=== PATIENT | female | born 1965 | race Caucasian/White ===

== ENCOUNTER → 2018-02-11 | Outpatient (CLI) | payer BC | END | disposition home or self-care (01) | LOC: LABWHC1 09:12 | PROVIDERS: ATTEND Obstetrics & Gynecology | DX: R61 Generalized hyperhidrosis (principal); R53.83 Other fatigue; N95.2 Postmenopausal atrophic vaginitis; R37 Sexual dysfunction, unspecified | CPT/HCPCS: 36415; 82670; 83001; 84403 ==

== ENCOUNTER → 2018-05-04 | Outpatient (CLI) | payer BC ==
--- NOTE | 2018-05-14 12:13 | MM ---
Reason for exam: screening (asymptomatic). Last mammogram was performed 1 year and 1 month ago. History: Patient is postmenopausal. Family history of breast cancer in sister at age 59. Reductions of both breasts, August 2017. Taking progesterone for 4 months. Physical Findings: A clinical breast exam by your physician is recommended on an annual basis and results should be correlated with mammographic findings. MG 3D Screening Mammo W/Cad Bilateral CC and MLO view(s) were taken. Prior study comparison: April 16, 2017, mammogram, performed at [facility]. March 21, 2016, mammogram, performed at [facility]. The breast tissue is heterogeneously dense. This may lower the sensitivity of mammography. New right central upper distortion at posterior depth. Left upper outer quadrant distortion at middle posterior depth. Findings may relate to interval reduction but necessitate further evaluation. Greater suspicion on the right breast than left. ASSESSMENT: Incomplete: need additional imaging evaluation, BI-RAD 0 RECOMMENDATION: Special view mammogram and ultrasound of both breasts. [facility] will attempt to contact patient to return for supplemental views and ultrasound.
== END | disposition home or self-care (01) ==
LOC: RADMAMWWP 14:28
PROVIDERS: ATTEND Family Medicine
DX: Z12.31 Encounter for screening mammogram for malignant neoplasm of breast (principal); Z80.3 Family history of malignant neoplasm of breast
CPT/HCPCS: 77063; 77067

== ENCOUNTER → 2018-05-15 | Outpatient (CLI) | payer BC ==
--- NOTE | 2018-05-18 10:25 | USB ---
Reason for exam: additional evaluation requested from abnormal screening. History: Patient is postmenopausal. Family history of breast cancer in sister at age 59. Reductions of both breasts, August 2017. Taking progesterone for 4 months. Physical Findings: Nurse did not find any significant physical abnormalities on exam. US Breast Workup Limited RENETTA Technologist: Rachell Owusu, RT (R)(M) Right limited breast ultrasound including focal area of concern, retroareolar and axilla demonstrates a 6 x 3 x 4mm irregular, solid, hypoechoic lesion at 10 o'clock, biopsy advised. Left limited breast ultrasound including focal area of concern, retroareolar and axilla demonstrates a 6 x 6 x 5mm oval, cystic lesion at 3 o'clock, simple cyst and a 8 x 6 x 7mm oval, solid lesion at 2 o'clock, consider biopsy. These results were verbally communicated with the patient and result sheet given to the patient on 05/15/18. ASSESSMENT: Suspicious, BI-RAD 4 RECOMMENDATION: Ultrasound core biopsy of the right breast. (possibly biopsy of left depending on imaging at time of biopsy) Called Dr. Abrams with mammographic findings and has scheduled an appointment for the patient for 05/28/18 at 8:[address] Tnog. Biopsy scheduled for 05/28/18 at 12:20. PRELIMINARY REPORT CALLED AND FAXED TO DR. TONG ON 05/18/18.
== END | disposition home or self-care (01) ==
LOC: RADMAMWWP 14:14
PROVIDERS: ATTEND Family Medicine
DX: R92.8 Other abnormal and inconclusive findings on diagnostic imaging of breast (principal)

== ENCOUNTER → 2018-05-28 | Day surgery (SDC) | payer BC ==
[2018-05-28 11:04] VITALS: RESP 12; TEMP 98.7
[2018-05-28 11:54] VITALS: BP 129/74; PULSE 72
--- NOTE | 2018-05-28 11:57 | USB ---
EXAMINATION TYPE: US biopsy breast VAD RT, US biopsy breast VAD LT, MG diagnostic mammo BI wo CAD DATE OF EXAM: 05/28/2018 CLINICAL HISTORY: R92.8 ABN MAMMO. Abnormal ultrasound. History of bilateral breast reduction roughly 6 months ago. TECHNIQUE: Ultrasound guided core biopsy of bilateral breast with clip placement. COMPARISON: Prior bilateral breast ultrasound May 15, 2018. FINDINGS: The procedure of ultrasound guided core biopsy was explained to the patient. Benefits, alternatives, and risks were discussed. An informed consent was then obtained. The patient was placed in supine positioning for imaging and for the procedure. Preprocedure ultrasound redemonstrates vague irregular hypoechoic shadowing area 10:00 position zone B right breast and a round slightly hyperechoic 6 mm area 2:00 position zone A left breast. The overlying skin was prepped and draped in usual sterile fashion bilaterally. Lidocaine buffered with bicarbonate was used as anesthetic into the skin and subcutaneous tissue . Lidocaine with epinephrine is used as anesthetic into the deeper tissue up to area of concern in the bilateral breasts. Under ultrasound guidance, a 12-gauge vacuum assisted biopsy gun device was used to obtain 2 core samples bilaterally. Following this, a biopsy clip was left in each lesion. Lesions were less well pronounced after sampling. The patient tolerated the procedure well without any immediate complication. The patient was kept in the radiology department for short stay after the procedure and then discharged home in stable condition. Postprocedure single view mammogram shows successful deployment of bilateral clips. Patient had persistent soreness bilateral breast and significant scar left breast from reduction surgery and thus single mammogram view was performed. IMPRESSION: Successful, uncomplicated ultrasound guided core biopsy of areas of concern in the bilateral breasts,, full pathology results to follow. Low index of suspicion noted at time of procedure for both lesions. Pathology Results: Benign A. RIGHT BREAST, TEN O'CLOCK, ULTRASOUND GUIDED CORE BIOPSY: Prominent hyalinizing stromal fibrosis and focal fat necrosis. Negative for malignancy. B. LEFT BREAST, TWO O'CLOCK, ULTRASOUND GUIDED CORE BIOPSY: Fat necrosis with inflammation and fibrosis. Negative for malignancy. Recommendation Follow up mammogram of both breasts in 6 months. OLU
== END ==
LOC: RADUSWWP 10:35
PROVIDERS: ATTEND Surgery
DX: N60.32 Fibrosclerosis of left breast (principal); N60.31 Fibrosclerosis of right breast; N64.1 Fat necrosis of breast
CPT/HCPCS: 88305; 77066; 19083; 19084; A4648; J2001

== ENCOUNTER → 2018-05-28 | Outpatient (CLI) | payer BC ==
[2018-05-28 08:11] VITALS: BP 149/88; PULSE 70; RESP 18; TEMP 98.3; BMI 25.0
--- NOTE | 2018-05-28 09:01 | P.GSHP ---
History of Present Illness H&P Date: 05/28/18 Chief Complaint: abnormal mammogram and ultrasound The patient is a 52-year-old white female who presents with a mammographic abnormality noted in bilateral breasts, which persisted on an ultrasound on the right breast. The area of concern is in the right central upper area and on ultrasound this area reveals a 6 x 4 mm irregular solid lesion at 10:00 for which biopsy was advised. In the left breast on ultrasound there was a 8 x 7 mm oval solid area at 2:00 for which biopsy was to be considered. This ultrasound will be repeated when the patient goes for her right breast biopsy. Of interest is the fact that the patient underwent a bilateral breast reduction in August 2017. The pathology on breast tissue at that time was all benign. The patient has done well since that time. Approximately 3 weeks ago she did have additional skin removed from both sides of the chest wall related to the breast reduction. The patient herself has not felt any masses or nodules of concern in her breasts. She has no history of any trauma to the breast. She has no history of any infection in the breast. The patient is not complaining of any pain in her breasts. Family history: 1. sister breast cancer at 58, she underwent a lumpectomy and radiation and is doing well at this time 2.mother: colon cancer 3. father: bladder cancer 4. paternal grandfather: bladder cancer Hormanal History: menarche: 11 : 2, first at 22, breast fed: no menopause: 48 BCP: 4 years hormones: biote with Dr. Delacruz, progesterone at night (pellet placed on May.04) Past Surgical History: 1. exploratory laproatomy 2. colon resection sigmoid colon resection removed tubes and one ovary 3. incisional hernia/abdominoplasty 4. bunionectomy 5. rotator cuff repaired Past Medical History: 1. HTN 2. back pain Social: smoke: not for 30 years alcohol: wine/week-ends drugs: none - Constitutional Comment: patient on biote pellets, using them for 4 months, prior to that hot flashes Constitutional: Denies chills, Denies fever - EENT Eyes: bilateral tunnel vision/blind spots (prior to migrains), denies blurred vision, denies pain Ears: deny: decreased hearing, tinnitus Ears, nose, mouth and throat: Reports headache, Denies sore throat - Breasts Breasts: bilateral: as per HPI - Cardiovascular Cardiovascular: Reports high blood pressure - Respiratory Comment: bronchitis in the past - Gastrointestinal Comment: PUD, sigmoid colon resection for diverticular disease - Genitourinary (Female) Genitourinary: Denies dysuria, Denies hematuria - Menstruation Menstruation: Reports postmenopausal - Musculoskeletal Comment: back pain - Integumentary Integumentary: Denies pruritus, Denies rash - Neurological Neurological: Denies numbness, Denies weakness - Psychiatric Psychiatric: Denies anxiety, Denies depression - Endocrine Endocrine: Denies fatigue, Denies weight change - Hematologic/Lymphatic Comment: aspirin baby q day - Allergic/Immunologic Allergic/Immunologic: Reports seasonal allergies Past Medical History Past Medical History: GERD/Reflux, Hypertension History of Any Multi-Drug Resistant Organisms: None Reported Past Surgical History: Bowel Resection, Hernia Repair, Orthopedic Surgery, Tubal Ligation Additional Past Surgical History / Comment(s): Right oophorectomy, Abdominalplasty after hernia repair, bilat breast reduction 2018 Past Anesthesia/Blood Transfusion Reactions: No Reported Reaction Past Psychological History: No Psychological Hx Reported Smoking Status: Never smoker Past Drug Use History: None Reported - Past Family History Mother Family Medical History: Cancer, Hypertension Additional Family Medical History / Comment(s): colon Father Family Medical History: Cancer, Diabetes Mellitus Additional Family Medical History / Comment(s): bladder Medications and Allergies Home Medications Medication Instructions Recorded Confirmed Type Aspirin [Adult Low Dose Aspirin EC] 81 mg PO DAILY 05/20/18 05/28/18 History Cholecalciferol [Vitamin D3] 5,000 unit PO DAILY 05/20/18 05/28/18 History Lisinopril-Hctz 10-12.5 mg 0.5 tab PO DAILY 05/20/18 05/28/18 History [Zestoretic 10-12.5] Loratadine [Claritin] 10 mg PO DAILY 05/20/18 05/28/18 History Omeprazole 40 mg PO DAILY PRN 05/20/18 05/28/18 History Progesterone, Micronized 200 mg PO DAILY 05/20/18 05/28/18 History [Progesterone] Allergies Allergy/AdvReac Type Severity Reaction Status Date / Time hydromorphone [From Dilaudid] Allergy Hallucinati Verified 05/20/18 12:55 ons Surgical - Exam Vital Signs Temp Pulse Resp BP Pulse Ox 98.3 F 70 18 149/88 98 05/28/18 08:02 05/28/18 08:02 05/28/18 08:02 05/28/18 08:02 05/28/18 08:02 BMI 25.1 - General well developed, well nourished, no distress - Eyes normal ocular movement, no icteric - ENT no hearing loss, no congestion - Neck no masses, trachea midline - Respiratory normal respiratory effort, clear to auscultation - Cardiovascular Rhythm: regular Heart Sounds: normal: S1, S2 - Abdomen Abdomen: soft, non tender, no guarding, no rigid, no rebound - Integumentary Patient has well-healed incisions from bilateral breast from reduction Inferior to the breast she had recent skin excision and there is a small area on the right and left lateral aspect of the lower incisions which are slightly open but no evidence of infection and these are healing well Well-healed scar from abdominoplasty - Neurologic no disoriented, no combative - Musculoskeletal normal gait, normal posture - Psychiatric oriented to time, oriented to person, oriented to place, speech is normal, memory intact Breast examination: Right breast: Well-healed scars from prior reduction mammoplasty, multi- positional examination of the breast reveals scar tissue related to reduction mammoplasty and some dense breast tissue but no discrete masses or nodules of concern are appreciated, inferior to the breast there is a well-healed scar with a small area open in the lateral aspect approximately 1 cm in size, this is from a recent skin excision there is no evidence of any infection Right axilla no adenopathy of concern Left breast: Well-healed scars from prior reduction mammoplasty, multi-positional examination of the breast reveals scar tissue related to reduction mammoplasty no dominant masses or nodules of concern Left axilla: No adenopathy of concern Inferior to the left breast there is an incision by recent skin excision was performed in the lateral aspect there is an area approximately 1.5 cm in size which is slightly open but no evidence of any infection Results Reports of mammogram and ultrasound of bilateral breast reviewed Assessment and Plan Assessment: Impression: 1. Bilateral mammographic abnormalities may be related to scar tissue from recent reduction mammoplasty 2. Ultrasound bilaterally revealing an area of concern in the right breast an area which will be reevaluated in the left breast biopsy of the right breast lesion is scheduled and repeat left breast ultrasound with possible biopsy of this site as well 3. History of back pain 4. Hypertension 5. Prior sigmoid colon resection for diverticular disease 6. Abdominoplasty 7. The patient had recent Biote pellet placement and takes progesterone in the evening, we have discussed that if this is a hormone sensitive tumor that we would prefer that she not take any hormones however she is concerned about her period starting with the biopsy pellet injection if she stops the progesterone she therefore wishes to await pathology results Plan: 1. Bilateral repeat ultrasound with right breast biopsy possible left breast biopsy 2. Patient to follow up in 1 week CC: DR. Ontiveros
== END ==
LOC: WWCWWP 07:41
PROVIDERS: ATTEND Surgery
DX: Z53.9 Procedure and treatment not carried out, unspecified reason (principal)

== ENCOUNTER → 2018-06-04 | Outpatient (CLI) | payer BC ==
[2018-06-04 12:50] VITALS: BP 126/66; PULSE 89; RESP 18; TEMP 97.7; BMI 25.8
--- NOTE | 2018-06-04 13:11 | P.PN ---
Subjective Progress Note Date: 06/04/18 Emmie is a 52-year-old white female who is status post bilateral ultrasound core biopsy performed [id number]. Pathology in the right breast revealed prominent hyalinizing stromal fibrosis and focal fat necrosis. Negative for malignancy. Pathology in the left breast revealed fat necrosis with inflammation and fibrosis. Negative for malignancy. The patient has no complaints related to the procedure. Objective - Vital Signs Vital signs: Vital Signs Temp 97.7 F 06/04/18 12:41 Pulse 89 06/04/18 12:41 Resp 18 06/04/18 12:41 BP 126/66 06/04/18 12:41 Pulse Ox 97 06/04/18 12:41 Intake & Output 06/03/18 06/04/18 06/04/18 18:59 06:59 18:59 Weight 68.353 kg - Constitutional General appearance: Present: average body habitus - EENT Eyes: Present: EOMI ENT: Present: hearing grossly normal - Neck Neck: Present: normal ROM - Respiratory Respiratory: bilateral: CTA - Cardiovascular Rhythm: regular Heart sounds: normal: S1, S2 - Gastrointestinal General gastrointestinal: Present: soft - Integumentary Integumentary: Present: normal turgor - Musculoskeletal Musculoskeletal: Present: gait normal - Psychiatric Psychiatric: Present: A&O x's 3, appropriate affect, intact judgment & insight - Additional findings Additional findings: Puncture sites from core biopsy clean and dry bilateral No evidence of infection at puncture sites Assessment and Plan Assessment: Impression: 1. Bilateral ultrasound-guided core biopsy of the breast benign 2. Bilateral breast reduction August 2017 3. Abdominoplasty 4. Prior sigmoid colon resection for diverticular disease 5. History of back pain Plan: 1. Medical management of medical conditions 2. Repeat bilateral breast ultrasound in 6 months with physician exam at that time CC: Dr. Ontiveros
== END ==
LOC: WWCWWP 12:30
PROVIDERS: ATTEND Surgery
DX: Z53.9 Procedure and treatment not carried out, unspecified reason (principal)

== ENCOUNTER → 2018-10-30 | Outpatient (CLI) | payer BC ==
--- NOTE | 2018-10-30 10:21 | MM ---
Reason for exam: follow-up at short interval from prior study. Last mammogram was performed 5 months ago. History: Patient is postmenopausal. Family history of breast cancer in sister at age 59. Benign US biopsy breast VAD LT of the left breast, May 28, 2018. Benign US biopsy breast add'l VAD RT of the right breast, May 28, 2018. Reductions of both breasts, August 2017. Taking progesterone for 4 months. Physical Findings: Nurse did not find any significant physical abnormalities on exam. MG 3D Diag Mammo W/Cad RENETTA Bilateral CC and MLO view(s) were taken. Prior study comparison: May 28, 2018, bilateral MG diagnostic marco antonio BI wo CAD. May 04, 2018, bilateral MG 3d screening mammo w/cad. The breast tissue is heterogeneously dense. This may lower the sensitivity of mammography. Previous mammotome biopsy in the right and left breast. There is no discrete abnormality. No significant new findings when compared with previous films. These results were verbally communicated with the patient and result sheet given to the patient on 10/30/18. ASSESSMENT: Benign, BI-RAD 2 RECOMMENDATION: Routine screening mammogram of both breasts in 1 year.
== END ==
LOC: RADMAMWWP 09:32
PROVIDERS: ATTEND Surgery
DX: R92.8 Other abnormal and inconclusive findings on diagnostic imaging of breast (principal)
CPT/HCPCS: 77062; 77066

== ENCOUNTER → 2019-12-07 | Outpatient (CLI) | payer BC ==
--- NOTE | 2019-12-09 08:32 | MM ---
Reason for exam: screening (asymptomatic). Last mammogram was performed 1 year and 1 month ago. History: Patient is postmenopausal. Family history of breast cancer in sister at age 59. Benign US biopsy breast VAD LT of the left breast, May 28, 2018. Benign US biopsy breast add'l VAD RT of the right breast, May 28, 2018. Reductions of both breasts, August 2017. Taking progesterone for 4 months. Physical Findings: A clinical breast exam by your physician is recommended on an annual basis and results should be correlated with mammographic findings. MG 3D Screening Mammo W/Cad Bilateral CC and MLO view(s) were taken. Prior study comparison: October 30, 2018, bilateral MG 3d diag mammo w/cad RENETTA. May 28, 2018, bilateral MG diagnostic marco antonio BI wo CAD. The breast tissue is heterogeneously dense. This may lower the sensitivity of mammography. Finding #1: There is a 7 mm equal density (isodense) mass in the subareolar position of the left breast. Finding #2: There are indeterminate calcifications in the subareolar position of the left breast. Previous mammotome biopsy in the right and left breast. ASSESSMENT: Incomplete: need additional imaging evaluation, BI-RAD 0 RECOMMENDATION: Special view mammogram of the left breast. If lesion persists on supplemental views, image directed ultrasound is recommended. [facility] will attempt to contact patient to return for supplemental views and ultrasound if indicated.
== END | disposition home or self-care (01) ==
LOC: RADMAMWWP 08:54
PROVIDERS: ATTEND Obstetrics & Gynecology
DX: Z80.3 Family history of malignant neoplasm of breast (principal)
CPT/HCPCS: 77063; 77067

== ENCOUNTER → 2019-12-13 | Outpatient (CLI) | payer BC ==
--- NOTE | 2019-12-14 10:18 | MM ---
Reason for exam: additional evaluation requested from abnormal screening. Last mammogram was performed less than 1 month ago. History: Patient is postmenopausal. Family history of breast cancer in sister at age 59. Benign US biopsy breast VAD LT of the left breast, May 28, 2018. Benign US biopsy breast add'l VAD RT of the right breast, May 28, 2018. Reductions of both breasts, August 2017. Taking progesterone for 4 months. Physical Findings: Nurse did not find any significant physical abnormalities on exam. MG 3D Work Up W/Cad LT CC with magnification, LM with magnification, and LM view(s) were taken of the left breast. Prior study comparison: December 07, 2019, bilateral MG 3d screening mammo w/cad. October 30, 2018, bilateral MG 3d diag mammo w/cad RENETTA. The breast tissue is heterogeneously dense. This may lower the sensitivity of mammography. Previous mammotome biopsy in the left breast. 12 o'clock lucencies at the site of subtle new grouped calcifications. On magnification CC there is a curvilinear edge, possible only oil cyst or fat necrosis calcifications. 6 month follow up recommended. These results were verbally communicated with the patient and result sheet given to the patient on 12/13/19. ASSESSMENT: Probably benign, BI-RAD 3 RECOMMENDATION: Follow-up diagnostic mammogram of the left breast in 6 months.
== END | disposition home or self-care (01) ==
LOC: RADMAMWWP 08:17
PROVIDERS: ATTEND Obstetrics & Gynecology
DX: R92.8 Other abnormal and inconclusive findings on diagnostic imaging of breast (principal)
CPT/HCPCS: 77061; 77065

== ENCOUNTER → 2020-05-11 | Outpatient (CLI) | payer BC | END | disposition home or self-care (01) | LOC: LABWHC1 11:36 | PROVIDERS: ATTEND Family Medicine | DX: Z20.828 Contact with and (suspected) exposure to other viral communicable diseases (principal) | CPT/HCPCS: U0003; C9803 ==

== ENCOUNTER → 2020-06-16 | Outpatient (CLI) | payer BC ==
--- NOTE | 2020-06-16 11:14 | MM ---
Reason for exam: follow-up at short interval from prior study. Last mammogram was performed 6 months ago. History: Patient is postmenopausal. Family history of breast cancer in sister at age 59. Benign US biopsy breast VAD LT of the left breast, May 28, 2018. Benign US biopsy breast add'l VAD RT of the right breast, May 28, 2018. Reductions of both breasts, August 2017. Taking progesterone for 2 years. Physical Findings: Nurse did not find any significant physical abnormalities on exam. MG 3D Diag Mammo W/Cad LT CC, MLO, and XCCL view(s) were taken of the left breast. Prior study comparison: December 13, 2019, left breast MG 3d work up w/cad LT. December 07, 2019, bilateral MG 3d screening mammo w/cad. The breast tissue is heterogeneously dense. This may lower the sensitivity of mammography. Previous mammotome biopsy in the left breast. No significant new findings when compared with previous films. These results were verbally communicated with the patient and result sheet given to the patient on 06/16/20. ASSESSMENT: Benign, BI-RAD 2 RECOMMENDATION: Return to routine screening mammogram schedule for both breasts.
== END | disposition home or self-care (01) ==
LOC: RADMAMWWP 09:58
PROVIDERS: ATTEND Obstetrics & Gynecology
DX: R92.8 Other abnormal and inconclusive findings on diagnostic imaging of breast (principal); Z80.3 Family history of malignant neoplasm of breast
CPT/HCPCS: 77061; 77065

== ENCOUNTER → 2020-12-08 | Outpatient (CLI) | payer BC ==
[2020-12-08 17:42] LABS: Chol/HDL Ratio 2.73; LDL Cholesterol,Calculated 88.2 mg/dL (0.0-131.0); VLDL Calculation 15.8 mg/dL (5.00-40.00)
== END | disposition home or self-care (01) ==
LOC: LABWHC1 07:23
PROVIDERS: ATTEND Internal Medicine Cardiovascular Disease
DX: E78.00 Pure hypercholesterolemia, unspecified (principal); Z82.49 Family history of ischemic heart disease and other diseases of the circulatory system
CPT/HCPCS: 36415; 80061; 82550; 83090; 83695; 84450; 84460

== ENCOUNTER → 2020-12-08 | Outpatient (CLI) | payer BC ==
--- NOTE | 2020-12-13 13:42 | MM ---
Reason for exam: screening (asymptomatic). Last mammogram was performed 6 months ago. History: Patient is postmenopausal. Family history of breast cancer in sister at age 59. Benign US biopsy breast VAD LT of the left breast, May 28, 2018. Benign US biopsy breast add'l VAD RT of the right breast, May 28, 2018. Reductions of both breasts, August 2017. Taking progesterone for 2 years. Physical Findings: A clinical breast exam by your physician is recommended on an annual basis and results should be correlated with mammographic findings. MG 3D Screening Mammo W/Cad Bilateral CC and MLO view(s) were taken. Prior study comparison: June 16, 2020, left breast MG 3d diag mammo w/cad LT. December 13, 2019, left breast MG 3d work up w/cad LT. The breast tissue is heterogeneously dense. This may lower the sensitivity of mammography. Previous mammotome biopsy in the right and left breast. There is no discrete abnormality. ASSESSMENT: Benign, BI-RAD 2 RECOMMENDATION: Routine screening mammogram of both breasts in 1 year.
== END | disposition home or self-care (01) ==
LOC: RADMAMWWP 07:20
PROVIDERS: ATTEND Obstetrics & Gynecology
DX: Z12.31 Encounter for screening mammogram for malignant neoplasm of breast (principal); Z78.0 Asymptomatic menopausal state; Z80.3 Family history of malignant neoplasm of breast
CPT/HCPCS: 77063; 77067

== ENCOUNTER → 2021-12-10 | Outpatient (CLI) | payer BC ==
--- NOTE | 2021-12-11 20:18 | MM ---
Reason for Exam: Screening (asymptomatic). Last screening mammogram was performed 12 month(s) ago. Patient History: Menarche at age 11. First Full-Term at age 22. Right ovary removed at age 47. Postmenopausal. Currently using Progesterone, beginning at age 48 for 8 years. 08/2017, Bilateral Reduction. 05/28/2018, Benign Core Biopsy on the left side. 05/28/2018, Benign Core Biopsy on the right side. Sister had breast cancer, age 59. Risk Values: Denice 5 year model risk: 3.7%. NCI Lifetime model risk: 20.9%. Prior Study Comparison: 12/13/2019 Left Diagnostic Mammogram, [facility]. 06/16/2020 Left Diagnostic Mammogram, [facility]. 12/08/2020 Bilateral Screening Mammogram, [facility]. Tissue Density: The breast tissue is heterogeneously dense. This may lower the sensitivity of mammography. Findings: Analyzed By CAD. There are reduction mammoplasty changes on both sides. A microclip on either side from prior biopsies. Areas of asymmetric density are unchanged. No significant change from prior exams. Overall Assessment: Benign, BI-RAD 2 Management: Screening Mammogram of both breasts in 1 year. 1. A clinical breast exam by your physician is recommended on an annual basis and results should be correlated with mammographic findings. 2. Patient should continue monthly self breast exams. 3. This exam should not preclude additional follow-up of suspicious palpable abnormalities. Electronically signed and approved by: Eliu Boss M.D. Radiologist
== END | disposition home or self-care (01) ==
LOC: RADMAMWWP 09:35
PROVIDERS: ATTEND Obstetrics & Gynecology
DX: Z12.31 Encounter for screening mammogram for malignant neoplasm of breast (principal); Z78.0 Asymptomatic menopausal state; Z80.3 Family history of malignant neoplasm of breast
CPT/HCPCS: 77063; 77067

== ENCOUNTER → 2022-12-13 | Outpatient (CLI) | payer BC ==
--- NOTE | 2022-12-16 07:41 | MM ---
Reason for Exam: Screening (asymptomatic). Last screening mammogram was performed 12 month(s) ago. Patient History: Menarche at age 11. First Full-Term at age 22. Right ovary removed at age 47. Postmenopausal. Currently using Progesterone, beginning at age 48 for 8 years. 08/2017, Bilateral Reduction. 05/28/2018, Benign Core Biopsy on the left side. 05/28/2018, Benign Core Biopsy on the right side. Sister had breast cancer, age 59. Risk Values: Denice 5 year model risk: 3.8%. NCI Lifetime model risk: 20.5%. Prior Study Comparison: 06/16/2020 Left Diagnostic Mammogram, [facility]. 12/08/2020 Bilateral Screening Mammogram, [facility]. 12/10/2021 Bilateral MG 3D screening mammo w/cad, [facility]. Tissue Density: The breast tissue is heterogeneously dense. This may lower the sensitivity of mammography. Findings: Analyzed By CAD. Right breast biopsy clip, left breast biopsy clip. Post biopsy changes. There is no suspicious group of microcalcifications or new suspicious mass in either breast. Overall Assessment: Benign, BI-RAD 2 Management: Screening Mammogram of both breasts in [address] [facility] will attempt to contact patient to return for supplemental views and ultrasound if indicated. Patient should continue monthly self-breast exams. A clinical breast exam by your physician is recommended on an annual basis. This exam should not preclude additional follow-up of suspicious palpable abnormalities. Note on Denice scores and lifetime risk: 1. A Denice score greater than 3% is considered moderate risk. If this is the case, consider specialist referral to assess eligibility for a risk reducing agent. 2. If overall lifetime risk for the development of breast cancer is 20% or higher, the patient may qualify for future screening with alternating mammogram and breast MRI. Electronically signed and approved by: Param Valero DO
== END | disposition home or self-care (01) ==
LOC: RADMAMWWP 08:14
PROVIDERS: ATTEND Obstetrics & Gynecology
DX: Z12.31 Encounter for screening mammogram for malignant neoplasm of breast (principal); Z78.0 Asymptomatic menopausal state; Z80.3 Family history of malignant neoplasm of breast
CPT/HCPCS: 77063; 77067

== ENCOUNTER → 2023-12-16 | Outpatient (CLI) | payer BC ==
--- NOTE | 2023-12-17 10:18 | MM ---
Reason for Exam: Screening (asymptomatic). Last screening mammogram was performed 12 month(s) ago. Patient History: Menarche at age 11. First Full-Term at age 22. Right ovary removed at age 47. Postmenopausal. Currently using Progesterone, beginning at age 48 for 8 years. 08/2017, Bilateral Reduction. 05/28/2018, Benign Core Biopsy on the left side. 05/28/2018, Benign Core Biopsy on the right side. Sister had breast cancer, age 59. Risk Values: Denice 5 year model risk: 4.0%. NCI Lifetime model risk: 20.1%. Prior Study Comparison: 12/08/2020 Bilateral Screening Mammogram, [facility]. 12/10/2021 Bilateral MG 3D screening mammo w/cad, [facility]. 12/13/2022 Bilateral MG 3D screening mammo w/cad, [facility]. Tissue Density: The breasts are heterogeneously dense, which may obscure small masses. Findings: Analyzed By CAD. There is no suspicious group of microcalcifications or new suspicious mass in either breast. Overall Assessment: Benign, BI-RAD 2 Management: Screening Mammogram of both breasts in 1 year. . Patient should continue monthly self-breast exams. A clinical breast exam by your physician is recommended on an annual basis. This exam should not preclude additional follow-up of suspicious palpable abnormalities. Note on Denice scores and lifetime risk: 1. A Denice score greater than 3% is considered moderate risk. If this is the case, consider specialist referral to assess eligibility for a risk reducing agent. 2. If overall lifetime risk for the development of breast cancer is 20% or higher, the patient may qualify for future screening with alternating mammogram and breast MRI. Electronically signed and approved by: Brian Levi M.D. Radiologis
== END | disposition home or self-care (01) ==
LOC: RADMAMWWP 08:59
PROVIDERS: ATTEND Obstetrics & Gynecology
DX: Z12.31 Encounter for screening mammogram for malignant neoplasm of breast (principal); Z80.3 Family history of malignant neoplasm of breast; Z78.0 Asymptomatic menopausal state
CPT/HCPCS: 77063; 77067

== ENCOUNTER 2024-09-04 08:39 | Observation (INO) | payer BC ==
--- NOTE | 2024-09-04 09:27 | ED ---
General Adult HPI - General Chief complaint: Dizziness Stated complaint: Dizziness,L arm pain Time Seen by Provider: 09/04/24 09:00 Source: patient, RN notes reviewed, old records reviewed Mode of arrival: wheelchair Limitations: no limitations - History of Present Illness Initial comments: Patient is a 58-year-old female who presents emergency department complaining of vertigo type symptoms. States that they started last night and progressed worsening this morning. Also states she had a strange feeling in her left arm that almost seems like a paresthesia. Denies any history of stroke, upper respiratory infection that is recent, cardiac disease. Cardiac disease does run in the family. Denies chest pain or shortness of breath. Denies nausea or vomiting or diarrhea. Denies abdominal pain. States that the dizziness is a room spinning sensation that furniture moves on her. States she has felt this previously 1 other time but it was not this persistent and not this bad. Does have family members with vertigo that take meclizine. She does not personally take it. States symptoms are worse when she sits up or stands up and improves when she lays down. Symptoms are worse with certain movements of her head as well. Presents for further evaluation at this time. Denies falling but states that when she does stand up she feels like she is going to fall due to the vertiginous symptoms. - Related Data Home Medications Medication Instructions Recorded Confirmed Aspirin [Adult Low Dose Aspirin EC] 81 mg PO DAILY 05/20/18 06/04/18 Cholecalciferol [Vitamin D3] 5,000 unit PO DAILY 05/20/18 06/04/18 Lisinopril-Hctz 10-12.5 mg 0.5 tab PO DAILY 05/20/18 06/04/18 [Zestoretic 10-12.5] Loratadine [Claritin] 10 mg PO DAILY 05/20/18 06/04/18 Omeprazole 40 mg PO DAILY PRN 05/20/18 06/04/18 Progesterone, Micronized 200 mg PO DAILY 05/20/18 06/04/18 [Progesterone] Allergies Allergy/AdvReac Type Severity Reaction Status Date / Time hydromorphone [From Dilaudid] Allergy Hallucinati Verified 09/04/24 08:43 ons Review of Systems ROS Statement: Those systems with pertinent positive or pertinent negative responses have been documented in the HPI. Review of Systems: CONST: Denies fever EYES: Denies blurry vision ENT: Denies nasal congestion C/V: Denies Chest pain RESP: Denies shortness of breath GI: Denies abdominal pain : Denies dysuria SKIN: Denies rash. MSK: Denies joint pain. NEURO: Endorses dizziness ROS Other: All systems not noted in ROS Statement are negative. Past Medical History Past Medical History: GERD/Reflux, Hypertension History of Any Multi-Drug Resistant Organisms: None Reported Past Surgical History: Bowel Resection, Hernia Repair, Orthopedic Surgery, Tubal Ligation Additional Past Surgical History / Comment(s): Right oophorectomy, Abdominalplasty after hernia repair, bilat breast reduction 2018 Past Anesthesia/Blood Transfusion Reactions: No Reported Reaction Past Psychological History: No Psychological Hx Reported Smoking Status: Never smoker Past Alcohol Use History: Daily Past Drug Use History: None Reported - Past Family History Mother Family Medical History: Cancer, Hypertension Additional Family Medical History / Comment(s): colon Father Family Medical History: Cancer, Diabetes Mellitus Additional Family Medical History / Comment(s): bladder General Exam - General Exam Comments Initial Comments: General: Appears in mild distress secondary to vertigo symptoms. HEAD: Normal with no signs of head trauma. EYES: PERRLA, EOMI, conjunctiva normal, no discharge. Pupils are 2 to 3 mm and equal bilaterally. No obvious nystagmus appreciated. ENT: Hearing grossly intact, normal oropharynx. RESPIRATORY: Clear breath sounds bilaterally. No wheezes, rales, or rhonchi. C/V: Regular rate and rhythm. S1 and S2 auscultated, no edema, peripheral pulses 2+ and intact throughout ABD: Abd is soft, nontender, nondistended EXT: Normal range of motion, no obvious deformity SKIN: No rashes or lesions observed on exposed skin. NEURO: Alert and oriented x 4. Cranial nerves II through XII are intact. Cerebellar function appears to be intact as evident by normal finger-nose testing, normal [id number] testing. There is absence of dysdiadochokinesia. Did not attempt ambulation due to the vertigo symptoms at time of exam. NIH is 0. GCS of 15. Limitations: no limitations Course Vital Signs 09/04/24 08:40 Temperature 98.1 F Pulse Rate 73 Respiratory 18 Rate Blood Pressure 182/82 O2 Sat by Pulse 99 Oximetry Medical Decision Making - Medical Decision Making Was pt. sent in by a medical professional or institution ([facility], [facility], urgent care, hospital, or prison...) When possible be specific @ -No Did you speak to anyone other than the patient for history (EMS, parent, family, police, friend...)? What history was obtained from this source @ -No Did you review nursing and triage notes (agree or disagree)? Why? @ -I reviewed and agree with nursing and triage notes Were old charts reviewed (outside hosp., previous admission, EMS record, old EKG, old radiological studies, urgent care reports/EKG's, prison records)? Report findings @ -No old charts were reviewed Differential Diagnosis (chest pain, altered mental status, abdominal pain women, abdominal pain men, vaginal bleeding, weakness, fever, dyspnea, syncope, headache, dizziness, GI bleed, back pain, seizure, CVA, palpatations, mental health, musculoskeletal)? @ -Differential Dizziness: Benign paroxysmal positional Vertigo, Meniere's disease, otitis media, acoustic neuroma, vertebrobasilar insufficiency, cerebellar stroke, encephalitis, hypovolemic, arrhythmia, coronary artery syndrome, anemia, this is not meant to be an all-inclusive list EKG interpreted by me (3pts min.). @ -As above X-rays interpreted by me (1pt min.). @ -Chest x-ray shows no obvious acute cardiopulmonary process. CT interpreted by me (1pt min.). @ -CT brain and CT angiogram head and neck negative for any obvious acute process. No evidence of stroke or large vessel occlusion. U/S interpreted by me (1pt. min.). @ -None done What testing was considered but not performed or refused? (CT, X-rays, U/S, labs)? Why? @ -None What meds were considered but not given or refused? Why? @ -None Did you discuss the management of the patient with other professionals (professionals i.e. [facility], [facility], lab, RT, psych nurse, social media campaign manager, dry wall installer, teacher, founder chairman and chief creative officer, sample case porter)? Give summary @ -I spoke with Dr. Head, who admits for Dr. Abrams who accepted the patient. Was smoking cessation discussed for >3mins.? @ -No Was critical care preformed (if so, how long)? @ -No Were there social determinants of health that impacted care today? How? (Homelessness, low income, unemployed, alcoholism, drug addiction, transportation, low edu. Level, literacy, decrease access to med. care, mcc, rehab)? @ -No Was there de-escalation of care discussed even if they declined (Discuss DNR or withdrawal of care, Hospice)? DNR status @ -No What co-morbidities impacted this encounter? (DM, HTN, Smoking, COPD, CAD, Cancer, CVA, ARF, Chemo, Hep., AIDS, mental health diagnosis, sleep apnea, morbi d obesity)? @ -None Was patient admitted / discharged? Hospital course, mention meds given and rout e, prescriptions, significant lab abnormalities, going to OR and other pertinent info. @ -Patient is a 58-year-old female who essentially presents for new onset vertigo. No other obvious findings on exam. NIH is 0. Last known well was sometime last night. Vital signs currently remarkable for mild hypertension. Has no other acute complaints at this time. We will obtain vertical workup including CT imaging the brain. She will be administered IV fluids, Zofran, meclizine. Patient was in agreement this plan. Patient is concerned for possible cardiac etiology for symptoms concerning her left arm feelings this morning which are improved, and she does have a history in the family of cardiac disease. Will obtain cardiac workup as well. EKG shows no signs of acute ischemia.Imaging negative for any obvious acute process. Laboratory studies are all within acceptable limits. I discussed the workup with the patient. She expressed understanding. Patient is still having significant vertigo following multiple doses of meclizine here in the department as well as IV fluids. I discussed discharge versus admission and she was amenable to admission for neurology evaluation. We will continue with meclizine therapy, IV fluids. I spoke with Dr. Head, who admits for Dr. Abrams who accepted the patient. Consult placed to neurology. Undiagnosed new problem with uncertain prognosis? @ -No Drug Therapy requiring intensive monitoring for toxicity (Heparin, Nitro, Insulin, Cardizem)? @ -No Were any procedures done? @ -No Diagnosis/symptom? @ -Intractable vertigo Acute, or Chronic, or Acute on Chronic? @ -Acute Uncomplicated (without systemic symptoms) or Complicated (systemic symptoms)? @ -Complicated Side effects of treatment? @ -None Exacerbation, Progression, or Severe Exacerbation] @ -No Poses a threat to life or bodily function? @ -Potentially, yes - Lab Data Result diagrams: 09/04/24 09:07 09/04/24 09:07 Lab Results 09/04/24 09/04/24 09/04/24 Range/Units 09:07 09:07 09:08 WBC 6.2 (3.8-10.6) k/uL RBC 4.39 (3.80-5.40) m/uL Hgb 13.4 (11.4-16.0) gm/dL Hct 41.0 (34.0-46.0) % MCV 93.4 (80.0-100.0) fL MCH 30.6 (25.0-35.0) pg MCHC 32.7 (31.0-37.0) g/dL RDW 13.5 (11.5-15.5) % Plt Count 296 (150-450) k/uL MPV 7.7 Neutrophils % 66 % Lymphocytes % 24 % Monocytes % 5 % Eosinophils % 3 % Basophils % 0 % Neutrophils # 4.1 (1.3-7.7) k/uL Lymphocytes # 1.5 (1.0-4.8) k/uL Monocytes # 0.3 (0-1.0) k/uL Eosinophils # 0.2 (0-0.7) k/uL Basophils # 0.0 (0-0.2) k/uL PT (10.0-12.5) sec INR (<1.2) APTT (22.0-30.0) sec Sodium 138 (137-145) mmol/L Potassium 4.3 (3.5-5.1) mmol/L Chloride 103 (98-107) mmol/L Carbon Dioxide 27 (22-30) mmol/L Anion Gap 8 mmol/L BUN 16 (7-17) mg/dL Creatinine 0.62 (0.52-1.04) mg/dL Est GFR (CKD-EPI)AfAm >90 (>60 ml/min/1.73 sqM) Est GFR (CKD-EPI)NonAf >90 (>60 ml/min/1.73 sqM) Glucose 111 H (74-99) mg/dL Calcium 9.8 (8.4-10.2) mg/dL Magnesium 2.4 H (1.6-2.3) mg/dL Total Bilirubin 0.9 (0.2-1.3) mg/dL AST 24 (14-36) U/L ALT 25 (4-34) U/L Alkaline Phosphatase 43 (38-126) U/L Troponin I (0.000-0.034) ng/mL Total Protein 7.1 (6.3-8.2) g/dL Albumin 4.5 (3.5-5.0) g/dL Urine Color Colorless Urine Appearance Clear (Clear) Urine pH 5.5 (5.0-8.0) Ur Specific [place] 1.004 (1.001-1.035) Urine Protein Negative (Negative) Urine Glucose (UA) Negative (Negative) Urine Ketones Negative (Negative) Urine Blood Negative (Negative) Urine Nitrite Negative (Negative) Urine Bilirubin Negative (Negative) Urine Urobilinogen <2.0 (<2.0) mg/dL Ur Leukocyte Esterase Negative (Negative) Urine Opiates Screen (NotDetected) Ur Oxycodone Screen (NotDetected) Urine Methadone Screen (NotDetected) Ur Barbiturates Screen (NotDetected) U Tricyclic Antidepress (NotDetected) Ur Phencyclidine Scrn (NotDetected) Ur Amphetamines Screen (NotDetected) U Methamphetamines Scrn (NotDetected) U Benzodiazepines Scrn (NotDetected) Urine Cocaine Screen (NotDetected) U Marijuana (THC) Screen (NotDetected) Serum Alcohol <10 mg/dL Influenza Type A (PCR) (Not Detectd) Influenza Type B (PCR) (Not Detectd) RSV (PCR) (Not Detectd) SARS-CoV-2 (PCR) (Not Detectd) 09/04/24 09/04/24 09/04/24 Range/Units 09:08 09:08 09:09 WBC (3.8-10.6) k/uL RBC (3.80-5.40) m/uL Hgb (11.4-16.0) gm/dL Hct (34.0-46.0) % MCV (80.0-100.0) fL MCH (25.0-35.0) pg MCHC (31.0-37.0) g/dL RDW (11.5-15.5) % Plt Count (150-450) k/uL MPV Neutrophils % % Lymphocytes % % Monocytes % % Eosinophils % % Basophils % % Neutrophils # (1.3-7.7) k/uL Lymphocytes # (1.0-4.8) k/uL Monocytes # (0-1.0) k/uL Eosinophils # (0-0.7) k/uL Basophils # (0-0.2) k/uL PT 10.5 (10.0-12.5) sec INR 0.9 (<1.2) APTT 25.1 (22.0-30.0) sec Sodium (137-145) mmol/L Potassium (3.5-5.1) mmol/L Chloride (98-107) mmol/L Carbon Dioxide (22-30) mmol/L Anion Gap mmol/L BUN (7-17) mg/dL Creatinine (0.52-1.04) mg/dL Est GFR (CKD-EPI)AfAm (>60 ml/min/1.73 sqM) Est GFR (CKD-EPI)NonAf (>60 ml/min/1.73 sqM) Glucose (74-99) mg/dL Calcium (8.4-10.2) mg/dL Magnesium (1.6-2.3) mg/dL Total Bilirubin (0.2-1.3) mg/dL AST (14-36) U/L ALT (4-34) U/L Alkaline Phosphatase (38-126) U/L Troponin I <0.012 (0.000-0.034) ng/mL Total Protein (6.3-8.2) g/dL Albumin (3.5-5.0) g/dL Urine Color Urine Appearance (Clear) Urine pH (5.0-8.0) Ur Specific [place] (1.001-1.035) Urine Protein (Negative) Urine Glucose (UA) (Negative) Urine Ketones (Negative) Urine Blood (Negative) Urine Nitrite (Negative) Urine Bilirubin (Negative) Urine Urobilinogen (<2.0) mg/dL Ur Leukocyte Esterase (Negative) Urine Opiates Screen (NotDetected) Ur Oxycodone Screen (NotDetected) Urine Methadone Screen (NotDetected) Ur Barbiturates Screen (NotDetected) U Tricyclic Antidepress (NotDetected) Ur Phencyclidine Scrn (NotDetected) Ur Amphetamines Screen (NotDetected) U Methamphetamines Scrn (NotDetected) U Benzodiazepines Scrn (NotDetected) Urine Cocaine Screen (NotDetected) U Marijuana (THC) Screen (NotDetected) Serum Alcohol mg/dL Influenza Type A (PCR) Not Detected (Not Detectd) Influenza Type B (PCR) Not Detected (Not Detectd) RSV (PCR) Not Detected (Not Detectd) SARS-CoV-2 (PCR) Not Detected (Not Detectd) 09/04/24 Range/Units 09:25 WBC (3.8-10.6) k/uL RBC (3.80-5.40) m/uL Hgb (11.4-16.0) gm/dL Hct (34.0-46.0) % MCV (80.0-100.0) fL MCH (25.0-35.0) pg MCHC (31.0-37.0) g/dL RDW (11.5-15.5) % Plt Count (150-450) k/uL MPV Neutrophils % % Lymphocytes % % Monocytes % % Eosinophils % % Basophils % % Neutrophils # (1.3-7.7) k/uL Lymphocytes # (1.0-4.8) k/uL Monocytes # (0-1.0) k/uL Eosinophils # (0-0.7) k/uL Basophils # (0-0.2) k/uL PT (10.0-12.5) sec INR (<1.2) APTT (22.0-30.0) sec Sodium (137-145) mmol/L Potassium (3.5-5.1) mmol/L Chloride (98-107) mmol/L Carbon Dioxide (22-30) mmol/L Anion Gap mmol/L BUN (7-17) mg/dL Creatinine (0.52-1.04) mg/dL Est GFR (CKD-EPI)AfAm (>60 ml/min/1.73 sqM) Est GFR (CKD-EPI)NonAf (>60 ml/min/1.73 sqM) Glucose (74-99) mg/dL Calcium (8.4-10.2) mg/dL Magnesium (1.6-2.3) mg/dL Total Bilirubin (0.2-1.3) mg/dL AST (14-36) U/L ALT (4-34) U/L Alkaline Phosphatase (38-126) U/L Troponin I (0.000-0.034) ng/mL Total Protein (6.3-8.2) g/dL Albumin (3.5-5.0) g/dL Urine Color Urine Appearance (Clear) Urine pH (5.0-8.0) Ur Specific [place] (1.001-1.035) Urine Protein (Negative) Urine Glucose (UA) (Negative) Urine Ketones (Negative) Urine Blood (Negative) Urine Nitrite (Negative) Urine Bilirubin (Negative) Urine Urobilinogen (<2.0) mg/dL Ur Leukocyte Esterase (Negative) Urine Opiates Screen Not Detected (NotDetected) Ur Oxycodone Screen Not Detected (NotDetected) Urine Methadone Screen Not Detected (NotDetected) Ur Barbiturates Screen Not Detected (NotDetected) U Tricyclic Antidepress Not Detected (NotDetected) Ur Phencyclidine Scrn Not Detected (NotDetected) Ur Amphetamines Screen Not Detected (NotDetected) U Methamphetamines Scrn Not Detected (NotDetected) U Benzodiazepines Scrn Not Detected (NotDetected) Urine Cocaine Screen Not Detected (NotDetected) U Marijuana (THC) Screen Not Detected (NotDetected) Serum Alcohol mg/dL Influenza Type A (PCR) (Not Detectd) Influenza Type B (PCR) (Not Detectd) RSV (PCR) (Not Detectd) SARS-CoV-2 (PCR) (Not Detectd) - EKG Data -: EKG Interpreted by Me EKG Comments: 12-lead Electrocardiogram Interpretation Note EKG was reviewed and interpreted by myself. 12-lead ECG performed at 0916 is interpreted by me as revealing sinus bradycardia at a rate of 59 beats per minute. [place] is normal. UT interval is 163 ms, QRS duration is 87 ms, QTc is 3 to 95 ms.. There were no ST or T wave abnormalities to suggest myocardial ischemia or injury. R wave progression across the precordium was satisfactory. By my interpretation this EKG is non-diagnostic for acute ischemia. Disposition Clinical Impression: Vertigo Disposition: ADMITTED IP TO THIS HOSP Condition: Stable Referrals: Jen Abrams MD [Primary Care Provider] - 1-2 days Time of Disposition: 11:25
[2024-09-04 09:58] LABS: Basophils % (A) 0 %; Eosinophils # (A) 0.2 k/uL (0-0.7); Eosinophils % (A) 3 %; HGB 13.4 gm/dL (11.4-16.0); Lymphocytes # (A) 1.5 k/uL (1.0-4.8); Lymphocytes % (A) 24 %; MCH 30.6 pg (25.0-35.0); MCHC 32.7 g/dL (31.0-37.0); MCV 93.4 fL (80.0-100.0); Mean Platelet Volume 7.7; Monocytes # (A) 0.3 k/uL (0-1.0); Monocytes % (A) 5 %; Neutrophils # (A) 4.1 k/uL (1.3-7.7); Neutrophils % (A) 66 %; Platelet Count 296 k/uL (150-450); RBC 4.39 m/uL (3.80-5.40); RDW 13.5 % (11.5-15.5); WBC 6.2 k/uL (3.8-10.6)
[2024-09-04 10:00] LABS: Appearance,Urine Clear (Clear); Bilirubin,Urine Negative (Negative); Blood,Urine Negative (Negative); Color,Urine Colorless; Glucose,Urine (UA) Negative (Negative); Ketones,Urine Negative (Negative); Leukocyte Esterase,Urine Negative (Negative); Nitrite,Urine Negative (Negative); PH, Urine 5.5 (5.0-8.0); Protein,Urine Negative (Negative); Specific Gravity,Urine 1.004 (1.001-1.035); Urobilinogen,Urine <2.0 mg/dL (<2.0)
[2024-09-04] MEDS: SODIUM CHLORIDE 0.9% 1,000 ML IV STA ×2 (10:02→11:47)
[2024-09-04] MEDS: ONDANSETRON 4 MG/2 ML VIAL IVP STA (10:02)
[2024-09-04] MEDS: MECLIZINE 12.5 MG TAB PO STA ×2 (10:02→11:47)
--- NOTE | 2024-09-04 10:04 | XR ---
Two-view chest. CLINICAL INDICATION: Female, 58 years old with history of dizzy, arm pain, Cough. COMPARISON: None TECHNIQUE: PA and lateral views chest obtained FINDINGS: There is no abnormal consolidative or interstitial opacity and the lungs are clear. The heart and pulmonary vasculature are normal. There is no pleural effusion or pneumothorax. The osseous structures and soft tissues unremarkable. IMPRESSION: No acute cardiopulmonary disease. [facility], , 09/04/2024 10:01 AM
[2024-09-04 10:13] LABS: ALT 25 U/L (4-34); AST 24 U/L (14-36); African American GFR (CKD) >90 (>60 ml/min/1.73 sqM); Albumin 4.5 g/dL (3.5-5.0); Alcohol <10 mg/dL; Alkaline Phosphatase 43 U/L (38-126); Anion Gap 8 mmol/L; Blood Urea Nitrogen 16 mg/dL (7-17); Calcium 9.8 mg/dL (8.4-10.2); Carbon Dioxide 27 mmol/L (22-30); Chloride 103 mmol/L (98-107); Glucose 111 mg/dL (74-99); Magnesium 2.4 mg/dL (1.6-2.3); Non-African American GFR(CKD) >90 (>60 ml/min/1.73 sqM); Potassium 4.3 mmol/L (3.5-5.1); Sodium 138 mmol/L (137-145); Total Bilirubin 0.9 mg/dL (0.2-1.3); Total Protein 7.1 g/dL (6.3-8.2)
[2024-09-04 10:14] LABS: Amphetamine Screen,Urine Not Detected (NotDetected); Barbiturate Screen,Urine Not Detected (NotDetected); Benzodiazepines Screen,Urine Not Detected (NotDetected); Cocaine Screen,Urine Not Detected (NotDetected); Methadone Screen, Urine Not Detected (NotDetected); Opiate Screen,Urine Not Detected (NotDetected); Oxycodone Screen, Urine Not Detected (NotDetected); Phencyclidine Screen,Urine Not Detected (NotDetected); Tricyclic Antidepressant,Urine Not Detected (NotDetected); Urn Cannabinoid Scrn Not Detected (NotDetected)
[2024-09-04 10:21] LABS: INR 0.9 (<1.2); Partial Thromboplastin Time 25.1 sec (22.0-30.0); Prothrombin Time 10.5 sec (10.0-12.5)
[2024-09-04 10:37] LABS: Influenza A Not Detected (Not Detectd); Influenza B Not Detected (Not Detectd); RSV Not Detected (Not Detectd)
--- NOTE | 2024-09-04 10:51 | CT ---
EXAMINATION TYPE: CT brain wo con DATE OF EXAM: 09/04/2024 COMPARISON: None CLINICAL INDICATION: Female, 58 years old with history of vertigo; PHH, vERTIGO CT DLP: 1094.9 mGycm Automated exposure control for dose reduction was used. Findings: The ventricles, basal cisterns and sulci over the convexities are within normal limits and there is n o mass effect or shift of midline structures. No abnormal density is seen throughout the brain parenchyma and there is no acute intra or extra-axia l hemorrhage. The posterior fossa including the brainstem, fourth ventricle and cerebellar pontine angles appear no rmal. Intraorbital contents appear normal and symmetric. Mild chronic inflammatory change in the left maxillary sinus otherwise the paranasal sinuses and mast oid air cells are well aerated. The calvarium is intact. IMPRESSION: 1. No acute bleed or mass effect. 2. Mild chronic inflammatory changes left maxillary sinus. [facility], , 09/04/2024 10:48 AM
--- NOTE | 2024-09-04 11:18 | CT ---
EXAMINATION TYPE: CT angio head neck DATE OF EXAM: 09/04/2024 COMPARISON: None CLINICAL INDICATION: Female, 58 years old with history of vertigo; PHH, VERTIGO TECHNIQUE: CTA scan of the head and neck is performed without and with IV Contrast, patient injected with 65 ml mL of Isovue 370, axial images are obtained, coronal and sagittal reformatted images are reviewed. 3D reconstructed images are created on an independent workstation and reviewed. 3-D postpro cessing was performed. CT DLP: 412.[address] CTDI: mGy Automated exposure control for dose reduction was used. NASCET criteria was used in interpretation of this exam? FINDINGS: The brachiocephalic origins are widely patent and no significant stenosis. There is no significant stenosis of the common or internal carotid arteries within the neck. There is no stenosis of the vertebral arteries. Intracranially, there is no stenosis, segmental occlusion, sizable aneurysm sac or vascular malformat ion. IMPRESSION:. No significant abnormality seen. NASCET criteria was used in interpretation of this exam? [facility], Workstation: [email or web address] 09/04/2024 11:16 AM
[2024-09-04] MEDS ORDERED: ONDANSETRON 4 MG/2 ML VIAL IVP PRN (11:25)
[2024-09-04] MEDS ORDERED: NALOXONE 0.4 MG/ML 1 ML VIAL IV PRN (11:25)
--- NOTE | 2024-09-04 13:22 | P.HPIM ---
History of Present Illness H&P Date: 09/04/24 Emmie Beyer, is a 58-year-old female who presented to [facility] emergency room with a chief complaint of severe vertigo, patient states that for the last 24 hours she has been having severe dizziness with feeling the room spinning around, and having unstable gait, she stated that she had a similar episode 2 months ago, at that time she had started a new estrogen replacement therapy, and thought that her symptoms were related to that, she discontinued estrogen and her symptoms resolved. At this time, patient stated that her symptoms are more severe, she was also having some nausea, she felt at some point that her left arm was heavy, but at this time this has resolved, the only symptoms she is having at this time is vertigo. She was evaluated in the emergency room vital examination on presentation revealed a temperature of 98.1 pulse 73 respiration 18 blood pressure 182/82 pulse ox 99% on room air Laboratory data revealed a white blood count of 6.2 hemoglobin 13.4 platelet count 296 BUN 16 creatinine 0.62 magnesium was elevated at 2.4 troponin 0.012 urine analysis was clear, urine toxicology screen was negative, influenza A and B, COVID-19, and RSV PCR were all negative. Testing in the emergency room revealed chest x-ray done in the emergency room revealed no acute cardiopulmonary disease, EKG revealed sinus bradycardia otherwise normal EKG, CT scan of the brain revealed no acute bleed or mass effect, mild chronic inflammatory changes in the left maxillary sinus. CT angiogram of the head and neck revealed no significant abnormality Patient was admitted to medical floor for further evaluation and treatment, neurology consultation was requested. Past medical history is significant for history of hypertension, history of hyperlipidemia, otherwise she denies any significant past medical history, she states that she had an echocardiogram and a carotid Doppler about 2 years ago and they were within normal limits Past Medical History Past Medical History: GERD/Reflux, Hypertension History of Any Multi-Drug Resistant Organisms: None Reported Past Surgical History: Bowel Resection, Hernia Repair, Orthopedic Surgery, Tubal Ligation Additional Past Surgical History / Comment(s): Right oophorectomy, Abdominalplasty after hernia repair, bilat breast reduction 2017 Past Anesthesia/Blood Transfusion Reactions: No Reported Reaction Past Psychological History: No Psychological Hx Reported Smoking Status: Never smoker Past Alcohol Use History: Daily Past Drug Use History: None Reported - Past Family History Mother Family Medical History: Cancer, Hypertension Additional Family Medical History / Comment(s): colon Father Family Medical History: Cancer, Diabetes Mellitus Additional Family Medical History / Comment(s): bladder Medications and Allergies Home Medications Medication Instructions Recorded Confirmed Type Aspirin [Adult Low Dose Aspirin EC] 81 mg PO HS 05/20/18 09/04/24 History Lisinopril-Hctz 10-12.5 mg 0.5 tab PO DAILY 05/20/18 09/04/24 History [Zestoretic 10-12.5] Progesterone, Micronized 200 mg PO HS 05/20/18 09/04/24 History [Progesterone] Aspirin 81 mg PO ONCE PRN 09/04/24 09/04/24 History Atorvastatin [Lipitor] 10 mg PO HS 09/04/24 09/04/24 History Co Q-10(Unknown Dose) 1 tab PO HS 09/04/24 09/04/24 History Pro-Vitalize(Otc) 1 tab PO DAILY 09/04/24 09/04/24 History Vitamin C(Unknown Dose) 1 tab PO DAILY 09/04/24 09/04/24 History Vitamin D3(Unknown Dose) 1 tab PO DAILY 09/04/24 09/04/24 History Allergies Allergy/AdvReac Type Severity Reaction Status Date / Time hydromorphone [From Dilaudid] Allergy Hallucinati Verified 09/04/24 12:20 ons Physical Exam Vitals: Vital Signs Temp Pulse Resp BP Pulse Ox 09/04/24 11:48 67 18 142/93 98 09/04/24 08:40 98.1 F 73 18 182/82 99 Intake and Output 09/03/24 09/04/24 09/04/24 22:59 06:59 14:59 Other: Weight 63.503 kg In general patient is alert and oriented x 3 in no distress HEENT head normocephalic and atraumatic Neck is supple no JVD no goiter no lymphadenopathy no carotid bruit Chest examination is clear to auscultation no crackles no wheezing Cardiac exam reveals regular heart sounds S1 and S2 no gallops no murmurs Abdomen is soft nontender no organomegaly with normal bowel sounds Extremity exam reveals no edema no cyanosis or clubbing Neurological examination reveals no gross focal deficits Results CBC & Chem 7: 09/04/24 09:07 09/04/24 09:07 Labs: Abnormal Lab Results - Last 24 Hours (Table) 09/04/24 Range/Units 09:07 Glucose 111 H (74-99) mg/dL Magnesium 2.4 H (1.6-2.3) mg/dL Assessment and Plan Plan: Severe vertigo with unstable gait Underlying history of hypertension Underlying history of hyperlipidemia Electrolyte imbalance with hypomagnesemia Mild bradycardia on EKG At this time patient was seen and examined She was admitted to medical floor with telemetry Home medications reviewed and reordered, meclizine was started in the emergency room Neurology consultation was requested For DVT prophylaxis subcu Lovenox Will follow closely
[2024-09-04] MEDS: ACETAMINOPHEN TAB 325 MG TAB PO PRN (13:44)
[2024-09-04] MEDS: MECLIZINE 25 MG TAB PO PRN (20:31)
[2024-09-04] MEDS: ATORVASTATIN 10 MG TAB PO SCH (20:31)
[2024-09-04] MEDS: ASPIRIN 81 MG PO SCH (20:31)
[2024-09-04] MEDS ORDERED: CO Q10 PO SCH (21:00)
[2024-09-04] MEDS: IBUPROFEN 800 MG TAB PO PRN (21:04)
[2024-09-04 21:28] VITALS: RESP 16
[2024-09-05 07:50] VITALS: BP 138/85; PULSE 65; TEMP 98.4
[2024-09-05] MEDS: LISINOPRIL-HCTZ 10-12.5 MG 1 EACH TAB PO SCH (08:37)
[2024-09-05] MEDS: ENOXAPARIN 40 MG/0.4 ML SYRINGE SQ SCH (08:38)
--- NOTE | 2024-09-05 09:07 | P.PN ---
Subjective Progress Note Date: 09/05/24 Emmie Beyer, is a 58-year-old female who presented to [facility] emergency room with a chief complaint of severe vertigo, patient states that for the last 24 hours she has been having severe dizziness with feeling the room spinning around, and having unstable gait, she stated that she had a similar episode 2 months ago, at that time she had started a new estrogen replacement therapy, and thought that her symptoms were related to that, she discontinued estrogen and her symptoms resolved. At this time, patient stated that her symptoms are more severe, she was also having some nausea, she felt at some point that her left arm was heavy, but at this time this has resolved, the only symptoms she is having at this time is vertigo. She was evaluated in the emergency room vital examination on presentation revealed a temperature of 98.1 pulse 73 respiration 18 blood pressure 182/82 pu lse ox 99% on room air Laboratory data revealed a white blood count of 6.2 hemoglobin 13.4 platelet count 296 BUN 16 creatinine 0.62 magnesium was elevated at 2.4 troponin 0.012 urine analysis was clear, urine toxicology screen was negative, influenza A and B, COVID-19, and RSV PCR were all negative. Testing in the emergency room revealed chest x-ray done in the emergency room revealed no acute cardiopulmonary disease, EKG revealed sinus bradycardia otherwise normal EKG, CT scan of the brain revealed no acute bleed or mass effect, mild chronic inflammatory changes in the left maxillary sinus. CT angiogram of the head and neck revealed no significant abnormality Patient was admitted to medical floor for further evaluation and treatment, neurology consultation was requested. Past medical history is significant for history of hypertension, history of hyperlipidemia, otherwise she denies any significant past medical history, she states that she had an echocardiogram and a carotid Doppler about 2 years ago and they were within normal limits On 09/05/2024 patient's alert and oriented x 3. Patient reports improvement with dizziness. Awaiting neurology input. Current vital signs temp 98.4, heart rate 65, respiratory rate 16, blood pressure 138/85 with a pulse ox of 99% on room air. Patient denies chest pain. Patient denies nausea vomiting or diarrhea. Patient denies any urinary burning or frequency. Objective - Vital Signs Vital signs: Vital Signs Temp 98.4 F 09/05/24 07:11 Pulse 65 09/05/24 07:11 Resp 16 09/05/24 07:11 BP 138/85 09/05/24 07:11 Pulse Ox 99 09/05/24 07:11 FiO2 Intake & Output 09/04/24 09/05/24 09/05/24 17:59 06:59 18:59 Intake Total Balance Weight Intake: Oral Other: Voiding Method # Voids - Exam In general patient is alert and oriented x 3 in no distress HEENT head normocephalic and atraumatic Neck is supple no JVD no goiter no lymphadenopathy no carotid bruit Chest examination is clear to auscultation no crackles no wheezing Cardiac exam reveals regular heart sounds S1 and S2 no gallops no murmurs Abdomen is soft nontender no organomegaly with normal bowel sounds Extremity exam reveals no edema no cyanosis or clubbing Neurological examination reveals no gross focal deficits - Labs CBC & Chem 7: 09/04/24 09:07 09/04/24 09:07 Labs: Abnormal Lab Results - Last 24 Hours (Table) 09/04/24 Range/Units 09:07 Glucose 111 H (74-99) mg/dL Magnesium 2.4 H (1.6-2.3) mg/dL Assessment and Plan Plan: Severe vertigo with unstable gait Underlying history of hypertension Underlying history of hyperlipidemia Electrolyte imbalance with hypomagnesemia Mild bradycardia on EKG At this time patient was seen and examined She was admitted to medical floor with telemetry Home medications reviewed and reordered, meclizine was started in the emergency room Neurology consultation was requested For DVT prophylaxis subcu Hany Will follow closely
[2024-09-05 09:30] LABS: Basophils # (A) 0.05 X 10*3/uL (0.00-0.10); Basophils % (A) 0.7 %; Eosinophils # (A) 0.24 X 10*3/uL (0.04-0.35); Eosinophils % (A) 3.5 %; HCT 38.6 % (37.2-46.3); HGB 12.5 g/dL (12.0-15.0); Lymphocytes # (A) 2.45 X 10*3/uL (0.90-5.00); Lymphocytes % (A) 36.1 %; MCH 30.4 pg (27.0-32.0); MCHC 32.4 g/dL (32.0-37.0); MCV 93.9 FL (80.0-97.0); Monocytes # (A) 0.48 X 10*3/uL (0.20-1.00); Monocytes % (A) 7.1 %; NRBC Per 100 WBC 0 X 10*3/uL (0.00-0.01); Neutrophils # (A) 3.55 X 10*3/uL (1.80-7.70); Neutrophils % (A) 52.3 %; Platelet Count 295 X 10*3/uL (140-440); RBC 4.11 X 10*6/uL (4.10-5.20); RDW 13.4 % (11.5-14.5); WBC 6.79 X 10*3/uL (4.50-10.00)
[2024-09-05 11:35] LABS: ALT 20 U/L (8-44); AST 18 U/L (13-35); Alkaline Phosphatase 38 U/L (41-126); BUN/Creat Ratio 18.14 Ratio (12.00-20.00); Blood Urea Nitrogen 12.7 mg/dL (9.0-27.0); Calcium 9.4 mg/dL (8.7-10.3); Carbon Dioxide 27.8 mmol/L (21.6-31.8); Chloride 104 mmol/L (96-109); Globulin 2.1 g/dL (1.6-3.3); Glucose 105 mg/dL (70-110); Potassium 4.2 mmol/L (3.5-5.5); Sodium 142 mmol/L (135-145); Total Bilirubin 0.3 mg/dL (0.3-1.2); Total Protein 6.1 g/dL (6.2-8.2)
--- NOTE | 2024-09-05 12:02 | P.CNNES ---
History of Present Illness Consult date: 09/05/24 Requesting physician: Rashel Álvarez Reason for Consult: intractable vertigo History of Present Illness: This is a 58-year-old woman who presents the emergency department because of dizziness. She stated that yesterday she woke up in the morning with dizziness. Also overnight she had episode of dizziness but the morning episode was a more drastic. She felt the floor and the room was moving. Dizziness was only with movement and relieved with rest. She did have nausea but no vomiting. She felt off. Denies any ringing in the ears or hearing loss. She felt her left arm was heavy. She just having difficulty just moving around because of the dizziness. Denies any numbness. Denies any speech difficulty or swallowing. Denies any history of stroke. She had a recent sinus infection. She had recent dizziness that resolved and that was a couple months ago. Initially she thought her last dizziness was due to her stopping her hormonal therapy but then she continues to be off of it and had this other episode. She is on aspirin 81 mg daily. She does have underlying history of hypertension, hypercholesteremia, low back pain. She feels when she turns her neck her neck pops. Currently today she feels drastically better compared to yesterday and the who is at bedside feels she is doing better. She stated that she is walking on her own without any issues. Some of the workup during this hospital visit consisted of: CBC with differential is unremarkable Chemistry panel is the sodium, calcium, AST ALT BUN/creatinine are within normal limits Her magnesium is 2.4. CT of the head is reported as no acute bleed or mass effect. Mild chronic inflammatory changes in the left maxillary sinus. Personally reviewed the CT and agree there is no acute or subacute ischemic process. CT angiography of the head and neck is reported as no significant abnormality seen. Review of Systems Review of system as per HPI Past Medical History Past Medical History: GERD/Reflux, Hypertension History of Any Multi-Drug Resistant Organisms: None Reported Past Surgical History: Bowel Resection, Hernia Repair, Orthopedic Surgery, Tubal Ligation Additional Past Surgical History / Comment(s): Right oophorectomy, Abdominalplasty after hernia repair, bilat breast reduction 2017 Past Anesthesia/Blood Transfusion Reactions: No Reported Reaction Past Psychological History: No Psychological Hx Reported Smoking Status: Never smoker Past Alcohol Use History: Daily Past Drug Use History: None Reported - Past Family History Mother Family Medical History: Cancer, Hypertension Additional Family Medical History / Comment(s): colon Father Family Medical History: Cancer, Diabetes Mellitus Additional Family Medical History / Comment(s): bladder Medications and Allergies Home Medications Medication Instructions Recorded Confirmed Type Aspirin [Adult Low Dose Aspirin EC] 81 mg PO HS 05/20/18 09/04/24 History Lisinopril-Hctz 10-12.5 mg 0.5 tab PO DAILY 05/20/18 09/04/24 History [Zestoretic 10-12.5] Progesterone, Micronized 200 mg PO HS 05/20/18 09/04/24 History [Progesterone] Aspirin 81 mg PO ONCE PRN 09/04/24 09/04/24 History Atorvastatin [Lipitor] 10 mg PO HS 09/04/24 09/04/24 History Co Q-10(Unknown Dose) 1 tab PO HS 09/04/24 09/04/24 History Pro-Vitalize(Otc) 1 tab PO DAILY 09/04/24 09/04/24 History Vitamin C(Unknown Dose) 1 tab PO DAILY 09/04/24 09/04/24 History Vitamin D3(Unknown Dose) 1 tab PO DAILY 09/04/24 09/04/24 History Allergies Allergy/AdvReac Type Severity Reaction Status Date / Time hydromorphone [From Dilaudid] Allergy Hallucinati Verified 09/04/24 12:20 ons Physical Examination - Vital Signs Vital Signs: Vital Signs Temp Pulse Pulse Resp BP BP Pulse Ox 09/05/24 07:11 98.4 F 65 16 138/85 99 09/05/24 03:00 97.9 F 64 16 127/71 99 09/04/24 20:00 98.3 F 65 16 130/87 96 09/04/24 13:20 98.2 F 63 18 133/76 98 09/04/24 11:48 67 18 142/93 98 Intake and Output 09/04/24 09/05/24 09/05/24 21:59 06:59 14:59 Intake Total Balance Intake: Oral Other: Voiding Method # Voids GENERAL: The patient is lying in bed and is not in acute distress. NEUROLOGICAL: Higher mental function: The patient is awake, alert, oriented to self, place and time. Patient is following commands. No aphasia and no neglect. Cranial nerves: The pupils are round, equal and reactive to light and accommodation. Visual camara are full to confrontation throughout. Extraocular movement is intact no nystagmus is noted. Facial sensation is normal to touch throughout. The facial strength is normal throughout. Hearing is normal bilaterally to hand rub. Tongue is midline and moved [id number] without any difficulty. No dysarthria is noted. Shoulder shrug is normal bilaterally. Motor: Gait is normal with normal arm swings. The strength is 5 over 5 throughout. Normal tone and bulk. Cerebellum: Normal finger to nose heel to mcclain bilaterally. Sensation: Sensation is normal to touch throughout. Plantars are downgoing bilaterally. Results - Laboratory Findings CBC and BMP: 09/05/24 04:39 09/05/24 04:39 Abnormal Lab Findings: Abnormal Labs 09/04/24 09/05/24 09:07 04:39 Glucose 111 H Magnesium 2.4 H Alkaline Phosphatase 38 L Total Protein 6.1 L Assessment and Plan Assessment: This is a 58-year-old woman who presents emergency department because of dizziness that she noticed yesterday in the morning that was worse. She stated that she had recent sinus infection. She feels dizziness is worse with movement and she feels the floor and the room is moving. Also she felt the left arm was heavy yesterday. She feels today she is drastically better. Transient episode of vertigo likely peripheral vertigo. Especially with recent sinus infection. Regarding her left arm heaviness sensation cannot exclude TIA. Underlying history of hypertension Hypercholesteremia Chronic low back pain Chronic numbness of bilateral feet. Plan: Patient is on home aspirin 81 mg as well as Lipitor 10 mg nightly. I recommended MRI of the brain but unable to perform it today since there is no MRI techs and the patient does not want to stay for the MRI and would like it to be performed as an outpatient. From neurology perspective this can be performed as an outpatient especially since the patient has no further focal deficit. Would recommend MRI of the brain with and without including IAC. I changed the meclizine from 25 mg 1 tablet 3 times daily because of the patient is doing about the side effects and is concerned that it is going to make her dizzy especially with her work schedule to 12.5 mg 1 tablet 3 times daily for 7 days and after that as needed. I notified the patient if the morning and afternoon dose does cause her to be drowsy or sleepy then to avoid and only take night dose. Commend the patient to be evaluated by ENT as an outpatient. Recommend the patient to be evaluated by neurologist as an outpatient for chronic numbness of her feet. Defer the rest of the medical management to primary team. The patient would like to be discharged home and from a neurologic perspective patient is doing much better and is cleared from neurology perspective. Thank you for the consultation Time with Patient: Greater than 30
--- NOTE | 2024-09-05 12:07 | P.DS ---
Providers Date of admission: 09/04/24 11:25 Expected date of discharge: 09/05/24 Attending physician: Santiago Head Consults: 09/04/24 11:25 Consult Physician Routine Consulting Provider: Yg Hawkins Consult Reason/Comments: intractable vertigo Do you want consulting provider notified?: Yes Primary care physician: Jen [facility] Course: Discharge Diagnosis Severe vertigo with unstable gait Underlying history of hypertension Underlying history of hyperlipidemia Electrolyte imbalance with hypomagnesemia Mild bradycardia on EKG Hospital Course Emmie Beyer, is a 58-year-old female who presented to [facility] emergency room with a chief complaint of severe vertigo, patient states that for the last 24 hours she has been having severe dizziness with feeling the room spinning around, and having unstable gait, she stated that she had a similar episode 2 months ago, at that time she had started a new estrogen replacement therapy, and thought that her symptoms were related to that, she discontinued estrogen and her symptoms resolved. At this time, patient stated that her symptoms are more severe, she was also having some nausea, she felt at some point that her left arm was heavy, but at this time this has resolved, the only symptoms she is having at this time is vertigo. She was evaluated in the emergency room vital examination on presentation revealed a temperature of 98.1 pulse 73 respiration 18 blood pressure 182/82 pulse ox 99% on room air Laboratory data revealed a white blood count of 6.2 hemoglobin 13.4 platelet count 296 BUN 16 creatinine 0.62 magnesium was elevated at 2.4 troponin 0.012 urine analysis was clear, urine toxicology screen was negative, influenza A and B, COVID-19, and RSV PCR were all negative. Testing in the emergency room revealed chest x-ray done in the emergency room revealed no acute cardiopulmonary disease, EKG revealed sinus bradycardia otherwise normal EKG, CT scan of the brain revealed no acute bleed or mass effect, mild chronic inflammatory changes in the left maxillary sinus. CT angiogram of the head and neck revealed no significant abnormality Patient was admitted to medical floor for further evaluation and treatment, neurology consultation was requested. Past medical history is significant for history of hypertension, history of hy perlipidemia, otherwise she denies any significant past medical history, she states that she had an echocardiogram and a carotid Doppler about 2 years ago and they were within normal limits On 09/05/2024 patient's alert and oriented x 3. Patient reports improvement with dizziness. Awaiting neurology input. Current vital signs temp 98.4, heart rate 65, respiratory rate 16, blood pressure 138/85 with a pulse ox of 99% on room air. Patient denies chest pain. Patient denies nausea vomiting or diarrhea. Patient denies any urinary burning or frequency. Patient has been cleared for D/C from neurology services. recommend outpatient follow up with ENT and MRI with IAC. patient will be d/c on antivert for 7 days Patient Condition at Discharge: Stable Plan - Discharge Summary New Discharge Prescriptions: New Meclizine [Antivert] 12.5 mg PO TID 7 Days #21 tab Continue Lisinopril-Hctz 10-12.5 mg [Zestoretic 10-12.5] 0.5 tab PO DAILY Aspirin [Adult Low Dose Aspirin EC] 81 mg PO HS Progesterone, Micronized [Progesterone] 200 mg PO HS Aspirin 81 mg PO ONCE PRN PRN Reason: Chest Pain Atorvastatin [Lipitor] 10 mg PO HS Vitamin D3(Unknown Dose) 1 tab PO DAILY Pro-Vitalize(Otc) 1 tab PO DAILY Vitamin C(Unknown Dose) 1 tab PO DAILY Co Q-10(Unknown Dose) 1 tab PO HS Discharge Medication List Aspirin [Adult Low Dose Aspirin EC] 81 mg PO HS 05/20/18 [History] Lisinopril-Hctz 10-12.5 mg [Zestoretic 10-12.5] 0.5 tab PO DAILY 05/20/18 [Histo ry] Progesterone, Micronized [Progesterone] 200 mg PO HS 05/20/18 [History] Aspirin 81 mg PO ONCE PRN 09/04/24 [History] Atorvastatin [Lipitor] 10 mg PO HS 09/04/24 [History] Co Q-10(Unknown Dose) 1 tab PO HS 09/04/24 [History] Pro-Vitalize(Otc) 1 tab PO DAILY 09/04/24 [History] Vitamin C(Unknown Dose) 1 tab PO DAILY 09/04/24 [History] Vitamin D3(Unknown Dose) 1 tab PO DAILY 09/04/24 [History] Meclizine [Antivert] 12.5 mg PO TID 7 Days #21 tab 09/05/24 [Rx] Follow up Appointment(s)/Referral(s): Jen Abrams MD [Primary Care Provider] - 1-2 days Ke Amador MD [STAFF PHYSICIAN] - 1 Week Activity/Diet/Wound Care/Special Instructions: per neurology recommend OP MRI ENT follow up Discharge Disposition: HOME SELF-CARE
[2024-09-05] MEDS ORDERED: MECLIZINE 12.5 MG TAB PO SCH (16:00)
== END 2024-09-05 13:13 | disposition home or self-care (01) ==
LOC: EC 08:39 → 5NMEDONC 11:25
PROVIDERS: ADMIT Internal Medicine; ATTEND Internal Medicine
DX: R42 Dizziness and giddiness (principal); R26.89 Other abnormalities of gait and mobility; G89.29 Other chronic pain; M54.50 Low back pain, unspecified; R20.0 Anesthesia of skin; I10 Essential (primary) hypertension; K21.9 Gastro-esophageal reflux disease without esophagitis; E78.00 Pure hypercholesterolemia, unspecified; R00.1 Bradycardia, unspecified; E83.42 Hypomagnesemia; Z11.52 Encounter for screening for COVID-19; Z79.82 Long term (current) use of aspirin; Z79.899 Other long term (current) drug therapy; Z88.5 Allergy status to narcotic agent
CPT/HCPCS: 96361; 96374; 99285; 36415; 93005; 80053 ×2; 83735; 84484; 85025 ×2; 85610; 85730; 81003; 80306; 80320; 87636; 71046; 70496; 70450; 70498; G0378 ×2; J2405; Q9967